=== PATIENT | male | born 1955 | race Caucasian/White ===

== ENCOUNTER 2020-12-26 09:43 | Outpatient (REF) | payer MEDICARE, MEDICAID, SELFPAY ==
[2020-12-26 12:10] LABS: Anion Gap 17 (12-20); Blood Urea Nitrogen 4 mg/dL (9-16); Calcium 8.3 mg/dL (8.4-10.2); Carbon Dioxide 29 mmol/L (22-29); Chloride 84 mmol/L (96-108); Estimated Glomerular Filt Rate > 60; Glucose Random 102 mg/dL (60-115); Sodium 127 mmol/L (135-145)
== END 2020-12-26 09:44 | disposition home or self-care (01) ==
LOC: HO.MANLDS 09:43
PROVIDERS: Visit Provider Internal Medicine
DX: E87.1 Hypo-osmolality and hyponatremia (principal)
CPT/HCPCS: 36415; 80048

== ENCOUNTER 2022-01-22 11:02 | Outpatient (REF) | payer OTHER, SELFPAY ==
[2022-01-22 13:24] LABS: MANUAL DIFF FLAG NO
[2022-01-22 13:33] LABS: Basophils Absolute Auto 0.1 X10*3/uL (0.0-0.2); Basophils Percent Auto 0.5 % (0-2); Eosinophils Absolute Auto 0.1 X10*3/uL (0.0-0.4); Eosinophils Percent Auto 0.8 % (0-4); Hematocrit 30.1 % (42.0-52.0); Hemoglobin 11.1 g/dl (14.0-18.0); Imm Gran Abs Auto 0.11 X10*3/uL (0.00-0.03); Imm Gran Pct Auto 1.2 % (0.0-0.4); Lymphocytes Absolute Auto 2.1 X10*3/uL (1.2-4.9); Mean Corpuscular HGB Conc 36.9 g/dl (31.0-36.0); Mean Corpuscular Hemoglobin 36.3 pg (27.0-33.0); Mean Corpuscular Volume 98.4 fL (80.0-98.0); Mean Platelet Volume 10.1 fL (9.4-12.4); Monocytes Absolute Auto 0.9 X10*3/uL (0.1-1.2); Monocytes Percent Auto 9.2 % (2-11); Neutrophils Percent Auto 65.3 % (45-73); Platelet Count 163 X10*3/uL (160-400); Red Blood Count 3.06 X10*6/uL (4.60-5.80); Red Cell Distribution Width 14.4 % (11.0-16.0); White Blood Count 9.3 X10*3/uL (4.8-10.8)
[2022-01-22 13:36] LABS: INTERNATIONAL NORM RATIO 1.3 (0.9-1.1); Prothrombin Time 15.2 SEC (10.0-13.1)
[2022-01-22 14:15] LABS: Alanine Aminotransferase 23 U/L (0-40); Albumin Level 2.3 g/dL (3.5-5.0); Alkaline Phosphatase 93 U/L (39-117); Anion Gap 13 (12-20); Aspartate Amino Transferase 51 U/L (5-37); Bilirubin Total 3.7 mg/dL (0.0-1.0); Blood Urea Nitrogen 9 mg/dL (9-16); Calcium 7.9 mg/dL (8.4-10.2); Carbon Dioxide 37 mmol/L (22-29); Chloride 79 mmol/L (96-108); Estimated Glomerular Filt Rate > 60; Glucose Random 120 mg/dL (60-115); Potassium 2.8 mmol/L (3.3-5.1); Sodium 126 mmol/L (135-145); Total Protein 6.8 g/dL (6.5-8.0)
[2022-01-22 14:19] LABS: Vitamin D 25-OH Total 8.7 ng/mL (>30)
[2022-01-22 14:41] LABS: Vitamin B12 985 pg/mL (200-900)
== END 2022-01-22 11:03 | disposition home or self-care (01) ==
LOC: HO.MANLDS 11:02
PROVIDERS: PCP Internal Medicine; Visit Provider Internal Medicine
DX: K70.9 Alcoholic liver disease, unspecified (principal)
CPT/HCPCS: 36415; 80053; 82306; 82607; 82746; 85025; 85610

== ENCOUNTER 2022-05-29 14:21 | Outpatient (REF) | payer OTHER, SELFPAY ==
[2022-05-29 18:38] LABS: Anion Gap 19 (12-20); Blood Urea Nitrogen 16 mg/dL (9-16); Calcium 9.6 mg/dL (8.4-10.2); Carbon Dioxide 21 mmol/L (22-29); Chloride 93 mmol/L (96-108); Estimated Glomerular Filt Rate > 60; Ferritin 1006 ng/mL (20-250); Glucose Random 93 mg/dL (60-115); Iron 98 mcg/dL (45-160); Percent Iron Saturation 39 % (15-50); Potassium 4.8 mmol/L (3.3-5.1); Sodium 128 mmol/L (135-145); Total Iron Binding Capacity 250 mcg/dL (228-428); Unsaturated Iron Binding 152 ug/dL
== END 2022-05-29 14:22 | disposition home or self-care (01) ==
LOC: HO.MANLDS 14:21
PROVIDERS: Visit Provider Internal Medicine
DX: D64.9 Anemia, unspecified (principal)
CPT/HCPCS: 36415; 80048; 82728; 83540

== ENCOUNTER 2022-07-19 15:32 | Outpatient (REF) | payer MEDICARE, SELFPAY ==
[2022-07-19 15:56] LABS: MANUAL DIFF FLAG NO
[2022-07-19 16:12] LABS: Basophils Percent Auto 0.3 % (0-2); Eosinophils Absolute Auto 0.2 X10*3/uL (0.0-0.4); Eosinophils Percent Auto 1.7 % (0-4); Hematocrit 34.1 % (42.0-52.0); Hemoglobin 11.7 g/dl (14.0-18.0); Imm Gran Abs Auto 0.13 X10*3/uL (0.00-0.03); Imm Gran Pct Auto 1.1 % (0.0-0.4); Lymphocytes Absolute Auto 1.5 X10*3/uL (1.2-4.9); Mean Corpuscular HGB Conc 34.3 g/dl (31.0-36.0); Mean Corpuscular Hemoglobin 29.8 pg (27.0-33.0); Mean Platelet Volume 8.7 fL (9.4-12.4); Monocytes Percent Auto 8.4 % (2-11); Neutrophils Absolute Auto 9.3 x10*3/uL (2.0-8.3); Neutrophils Percent Auto 76.5 % (45-73); Platelet Count 231 X10*3/uL (160-400); Red Blood Count 3.92 X10*6/uL (4.60-5.80); Red Cell Distribution Width 13.8 % (11.0-16.0); White Blood Count 12.1 X10*3/uL (4.8-10.8)
[2022-07-19 16:17] LABS: INTERNATIONAL NORM RATIO 1.1 (0.9-1.1); Prothrombin Time 12.6 SEC (10.0-13.1)
[2022-07-19 16:54] LABS: Alanine Aminotransferase 122 U/L (0-40); Albumin Level 4.1 g/dL (3.5-5.0); Alkaline Phosphatase 122 U/L (39-117); Anion Gap 15 (12-20); Aspartate Amino Transferase 62 U/L (5-37); Bilirubin Total 0.8 mg/dL (0.0-1.0); Blood Urea Nitrogen 35 mg/dL (9-16); Calcium 9.8 mg/dL (8.4-10.2); Carbon Dioxide 24 mmol/L (22-29); Chloride 96 mmol/L (96-108); Estimated Glomerular Filt Rate > 60; Glucose Random 108 mg/dL (60-115); Iron 44 mcg/dL (45-160); Percent Iron Saturation 17 % (15-50); Potassium 4.7 mmol/L (3.3-5.1); Sodium 130 mmol/L (135-145); Total Iron Binding Capacity 264 mcg/dL (228-428); Total Protein 7.5 g/dL (6.5-8.0); Unsaturated Iron Binding 220 ug/dL
[2022-07-19 17:09] LABS: Ferritin 995 ng/mL (20-250); Vitamin D 25-OH Total 34.8 ng/mL (>30)
[2022-07-19 17:26] LABS: Folate 7.1 ng/mL (> or = 4.0); Vitamin B12 352 pg/mL (200-900)
== END 2022-07-19 15:33 | disposition home or self-care (01) ==
LOC: HO.LAB 15:32
PROVIDERS: PCP Internal Medicine; Visit Provider Internal Medicine
DX: K70.9 Alcoholic liver disease, unspecified (principal); R77.8 Other specified abnormalities of plasma proteins
CPT/HCPCS: 36415; 80053; 82306; 82607; 82728; 82746; 83540; 85025; 85610

== ENCOUNTER 2022-07-30 15:06 | Outpatient (REF) | payer MEDICARE, SELFPAY ==
[2022-07-30 15:21] LABS: MANUAL DIFF FLAG NO
[2022-07-30 15:23] LABS: Basophils Absolute Auto 0.1 X10*3/uL (0.0-0.2); Basophils Percent Auto 0.5 % (0-2); Eosinophils Absolute Auto 0.3 X10*3/uL (0.0-0.4); Eosinophils Percent Auto 2.3 % (0-4); Hematocrit 34.1 % (42.0-52.0); Hemoglobin 11.8 g/dl (14.0-18.0); Imm Gran Abs Auto 0.13 X10*3/uL (0.00-0.03); Lymphocytes Absolute Auto 2.6 X10*3/uL (1.2-4.9); Lymphocytes Percent Auto 19.8 % (20-40); Mean Corpuscular HGB Conc 34.6 g/dl (31.0-36.0); Mean Corpuscular Hemoglobin 30.4 pg (27.0-33.0); Mean Corpuscular Volume 87.9 fL (80.0-98.0); Mean Platelet Volume 8.6 fL (9.4-12.4); Monocytes Absolute Auto 0.9 X10*3/uL (0.1-1.2); Monocytes Percent Auto 6.9 % (2-11); Neutrophils Percent Auto 69.5 % (45-73); Platelet Count 267 X10*3/uL (160-400); Red Blood Count 3.88 X10*6/uL (4.60-5.80); Red Cell Distribution Width 13.6 % (11.0-16.0)
[2022-07-30 15:28] LABS: Prothrombin Time 11.5 SEC (10.0-13.1)
[2022-07-30 15:32] LABS: Ammonia 31 umol/L (13-55)
[2022-07-30 15:52] LABS: Alanine Aminotransferase 28 U/L (0-40); Albumin Level 4.1 g/dL (3.5-5.0); Alkaline Phosphatase 109 U/L (39-117); Anion Gap 18 (12-20); Aspartate Amino Transferase 26 U/L (5-37); Bilirubin Total 0.5 mg/dL (0.0-1.0); Blood Urea Nitrogen 32 mg/dL (9-16); Calcium 9.8 mg/dL (8.4-10.2); Carbon Dioxide 20 mmol/L (22-29); Chloride 100 mmol/L (96-108); Estimated Glomerular Filt Rate > 60; Gamma Glutamyl Transpeptidase 143 U/L (11-51); Glucose Random 105 mg/dL (60-115); Potassium 5.2 mmol/L (3.3-5.1); Sodium 133 mmol/L (135-145); Total Protein 7.8 g/dL (6.5-8.0)
[2022-07-30 16:07] LABS: Vitamin D 25-OH Total 36.8 ng/mL (>30)
[2022-07-30 16:20] LABS: Folate 7.9 ng/mL (> or = 4.0); Vitamin B12 476 pg/mL (200-900)
== END 2022-07-30 15:07 | disposition home or self-care (01) ==
LOC: HO.LAB 15:06
PROVIDERS: PCP Internal Medicine; Visit Provider Physician Assistant
DX: K70.9 Alcoholic liver disease, unspecified (principal)
CPT/HCPCS: 36415; 80053; 82140; 82306; 82607; 82746; 82977; 85025; 85610

== ENCOUNTER 2023-09-03 13:52 | Outpatient (REF) | payer MEDICARE, SELFPAY ==
[2023-09-03 17:26] LABS: MANUAL DIFF FLAG NO
[2023-09-03 17:45] LABS: Alanine Aminotransferase 16 U/L (0-40); Albumin Level 4.2 g/dL (3.5-5.0); Alkaline Phosphatase 115 U/L (39-117); Anion Gap 15 (12-20); Aspartate Amino Transferase 22 U/L (5-37); Bilirubin Total 0.7 mg/dL (0.0-1.0); Blood Urea Nitrogen 18 mg/dL (9-16); Calcium 9.3 mg/dL (8.4-10.2); Carbon Dioxide 25 mmol/L (22-29); Chloride 93 mmol/L (96-108); Estimated Glomerular Filt Rate > 60; Glucose Random 103 mg/dL (60-115); Potassium 4.2 mmol/L (3.3-5.1); Sodium 129 mmol/L (135-145); Total Protein 7.6 g/dL (6.5-8.0)
[2023-09-03 17:48] LABS: Basophils Percent Auto 0.3 % (0-2); Eosinophils Absolute Auto 0.1 X10*3/uL (0.0-0.4); Eosinophils Percent Auto 0.9 % (0-4); Hematocrit 35.5 % (42.0-52.0); Hemoglobin 12.5 g/dl (14.0-18.0); Imm Gran Abs Auto 0.07 X10*3/uL (0.00-0.03); Imm Gran Pct Auto 1.1 % (0.0-0.4); Lymphocytes Absolute Auto 1.7 X10*3/uL (1.2-4.9); Lymphocytes Percent Auto 25.3 % (20-40); Mean Corpuscular HGB Conc 35.2 g/dl (31.0-36.0); Mean Corpuscular Volume 85.3 fL (80.0-98.0); Mean Platelet Volume 9.5 fL (9.4-12.4); Monocytes Absolute Auto 0.7 X10*3/uL (0.1-1.2); Monocytes Percent Auto 11.3 % (2-11); Neutrophils Percent Auto 61.1 % (45-73); Platelet Count 205 X10*3/uL (160-400); Red Blood Count 4.16 X10*6/uL (4.60-5.80); Red Cell Distribution Width 13.2 % (11.0-16.0); White Blood Count 6.6 X10*3/uL (4.8-10.8)
[2023-09-08 11:08] LABS: Testosterone, Total 314 ng/dL (250-1100)
== END 2023-09-03 13:53 | disposition home or self-care (01) ==
LOC: HO.MANLDS 13:52
PROVIDERS: Visit Provider Internal Medicine
DX: E87.1 Hypo-osmolality and hyponatremia (principal); R53.83 Other fatigue
CPT/HCPCS: 36415; 80053; 84403; 85025

== ENCOUNTER 2023-10-15 11:39 | Outpatient (REF) | payer MEDICARE, SELFPAY ==
[2023-10-15 12:54] LABS: MANUAL DIFF FLAG NO
[2023-10-15 13:03] LABS: Basophils Percent Auto 0.5 % (0-2); Eosinophils Absolute Auto 0.1 X10*3/uL (0.0-0.4); Eosinophils Percent Auto 1.6 % (0-4); Hematocrit 38.6 % (42.0-52.0); Hemoglobin 13.7 g/dl (14.0-18.0); Imm Gran Abs Auto 0.04 X10*3/uL (0.00-0.03); Imm Gran Pct Auto 0.5 % (0.0-0.4); Lymphocytes Absolute Auto 1.5 X10*3/uL (1.2-4.9); Lymphocytes Percent Auto 18.5 % (20-40); Mean Corpuscular HGB Conc 35.5 g/dl (31.0-36.0); Mean Corpuscular Hemoglobin 30.6 pg (27.0-33.0); Mean Corpuscular Volume 86.4 fL (80.0-98.0); Mean Platelet Volume 9.1 fL (9.4-12.4); Monocytes Absolute Auto 0.7 X10*3/uL (0.1-1.2); Monocytes Percent Auto 8.2 % (2-11); Neutrophils Absolute Auto 5.6 x10*3/uL (2.0-8.3); Neutrophils Percent Auto 70.7 % (45-73); Platelet Count 222 X10*3/uL (160-400); Red Blood Count 4.47 X10*6/uL (4.60-5.80); White Blood Count 7.9 X10*3/uL (4.8-10.8)
[2023-10-15 13:05] LABS: INTERNATIONAL NORM RATIO 0.9 (0.9-1.1); Prothrombin Time 11.5 SEC (11.1-13.3)
[2023-10-15 13:43] LABS: Alanine Aminotransferase 18 U/L (0-40); Albumin Level 4.2 g/dL (3.5-5.0); Alkaline Phosphatase 102 U/L (39-117); Anion Gap 10 (12-20); Aspartate Amino Transferase 18 U/L (5-37); Bilirubin Total 0.6 mg/dL (0.0-1.0); Blood Urea Nitrogen 12 mg/dL (9-16); C Reactive Protein 0.26 mg/dL (< or = 0.50); Calcium 9.6 mg/dL (8.4-10.2); Carbon Dioxide 29 mmol/L (22-29); Chloride 95 mmol/L (96-108); Estimated Glomerular Filt Rate > 60; Ferritin 384 ng/mL (20-250); Glucose Random 104 mg/dL (60-115); Iron 82 mcg/dL (45-160); Lactate Dehydrogenase 180 U/L (118-273); Percent Iron Saturation 32 % (15-50); Potassium 4.4 mmol/L (3.3-5.1); Sodium 130 mmol/L (135-145); Total Iron Binding Capacity 259 mcg/dL (228-428); Total Protein 7.5 g/dL (6.5-8.0); Unsaturated Iron Binding 177 ug/dL
[2023-10-15 13:45] LABS: Erythrocyte Sedimentation Rate 13 MM/HR (0-15)
[2023-10-19 12:34] LABS: NT-proBNP 156 pg/mL (<125)
== END 2023-10-15 11:40 | disposition home or self-care (01) ==
LOC: HO.MANLDS 11:39
PROVIDERS: Visit Provider Physician Assistant
DX: R18.8 Other ascites (principal)
CPT/HCPCS: 36415; 80053; 82728; 83540; 83615; 83880; 85025; 85610; 85652; 86140

== ENCOUNTER 2024-05-13 12:33 | Outpatient (AMB) | payer MEDICARE, SELFPAY ==
--- NOTE | 2024-05-13 12:40 | A.OFFVIS_ITS ---
Intake Visit Reasons: erectile dysfunction Intake Note: Patient is present for ERECTILE DYSFUCTION Urology Medication:NONE Antibiotic Allergy:NONE Blood Thinner:NONE Critical Care Cns Required: No Allergies lisinopril Allergy (Mild, Verified 05/13/24 14:16) Unknown Medication List - Last Reconciled 05/13/24 by Nikki Garcia MD albuterol sulfate 90 mcg/actuation 90 mcg inhalation Q4H PRN atenolol-chlorthalidone 50-25 mg 1 tab PO DAILY cholecalciferol (vitamin D3) 50 mcg PO DAILY furosemide 40 mg PO DAILY lactulose mL PO midodrine 5 mg PO TID pantoprazole 40 mg PO DAILY rifaximin (Xifaxan) 550 mg PO BID sildenafil mg PO spironolactone 50 mg PO BID tadalafil (Cialis) 20 mg orally use no more than one time a week; [id number] [facility] [id number] Member [id number] tadalafil (Cialis) 5 mg PO DAILY tiotropium-olodaterol 2.5-2.5 mcg/actuation (Stiolto Respimat) 2 puffs inhalation DAILY umeclidinium-vilanterol 62.5-25 mcg/actuation (Anoro Ellipta) 1 inh inhalation DAILY HPI Comments Details: Ferny is a 68 year old male who is here for evaluation for Erectile dysfunction. He has had symptoms for over 2 years. States his is . He has been on Viagra 100 mg prn without improvement. Comorbidity - h/o Nicotine use. Denies family history of prostate cancer. IIEF-5 Questionnaire score 5. Discussed use of daily Cialis 5 mg and after one month of use may add on demand Cialis 20 mg no more than one time a week. Will check PSA. Pt denies urinary symptoms. [facility] Medical History (Updated 05/18/24 @ 12:12 by Nikki Garcia MD) Osteoarthritis of ankle Osteoarthritis of knee Chronic obstructive lung disease History of tobacco use Hyponatremia Alcoholic fatty liver Edema of lower extremity Obesity High serum ferritin Elevated liver enzymes Ascites Abdominal pain Atypical chest pain Fatigue Cholelithiasis without obstruction Alcoholic liver damage Bilateral inguinal hernia Hypotensive episode Atrial fibrillation Erectile dysfunction Anemia Drug-induced hypokalemia Vitamin D deficiency Lipoma of upper arm Surgical History (Updated 05/13/24 @ 14:44 by RALPH Juarez) S/P reconstruction procedure Review of Systems Const All systems reviewed & are unremarkable except as noted in HPI and below Reports no additional complaints Eyes Reports no additional complaints ENT Reports no additional complaints Card Reports no additional complaints Resp Reports no additional complaints GI Reports no additional complaints Reports as per HPI Musc Reports no additional complaints Skin/Breast Reports system reviewed and no additional complaints, except as documented Neuro Reports no additional complaints Psych Reports no additional complaints Endo Reports no additional complaints Josesito/Lymph Reports no additional complaints Aller/Immun Reports no additional complaints Physical Exam Const General: healthy appearing, no acute distress and well developed Orientation/consciousness: patient oriented x3 HEENT Head: Yes normocephalic and Yes atraumatic Eyes Conjunctivae: conjunctivae normal Neck Neck: Yes normal visual inspection Chest Chest palpation & inspection: normal inspection of the chest Resp Effort & Inspection: normal respiratory effort Cardio Rate: regular rate GI Inspection: Yes normal to inspection Palpation (GI): Soft to palpation Skin General skin exam: no rashes or lesions noted Neuro General: patient oriented x3 Extrem General: No pedal edema Psych Appearance: grossly normal Affect: normal affect Results AMB Urinalysis, Automated UA Leukoctes 0 Maya/uL Last Edit by RALPH Juarez on 05/13/24 13:14 UA Nitrite Negative Last Edit by RALPH Juarez on 05/13/24 13:14 UA Urobilinogen 0.2 mg/dL Last Edit by RALPH Juarez on 05/13/24 13:1 4 UA Protein 15 mg/dL Last Edit by RALPH Juarez on 05/13/24 13:14 UA pH 7.0 Last Edit by RALPH Juarez on 05/13/24 13:14 UA Blood 0 Nic/uL Last Edit by RALPH Juarez on 05/13/24 13:14 UA Specific Fate 1.010 Last Edit by RALPH Juarez on 05/13/24 13: 14 UA Ketone Negative Last Edit by RALPH Juarez on 05/13/24 13:14 UA Bilirubin 0 mg/dL Last Edit by RALPH Juarez on 05/13/24 13:14 UA Glucose 0 mg/dL Last Edit by RALPH Juarez on 05/13/24 13:14 Results Reviewed Results Reviewed: Laboratory Last Values Urine pH (Auto) 7.0 05/13/24 13:13 Specific Fate (Auto) 1.010 05/13/24 13:13 Urine Protein (Auto) 15 mg/dL 05/13/24 13:13 Glucose (UA)(Auto) 0 mg/dL 05/13/24 13:13 Urine Ketones (Auto) Negative 05/13/24 13:13 Urine Blood (Auto) 0 Nic/uL 05/13/24 13:13 Urine Nitrite (Auto) Negative 05/13/24 13:13 Urine Bilirubin (Auto) 0 mg/dL 05/13/24 13:13 Urine Urobilinogen (Auto) 0.2 mg/dL 05/13/24 13:13 Leukocyte Esterase (Auto) 0 Maya/uL 05/13/24 13:13 Assessment & Plan Assessment & Plan (1) BPH (benign prostatic hyperplasia): Code(s): N40.0 - Benign prostatic hyperplasia without lower urinary tract symptoms Category: Medical (2) Erectile dysfunction: Code(s): N52.9 - Male erectile dysfunction, unspecified Category: Medical (3) Screening PSA (prostate specific antigen): Code(s): Z12.5 - Encounter for screening for malignant neoplasm of prostate Category: Medical Plan Discuss use of daily Cialis 5 mg and after one month of use may add on demand Cialis 20 mg no more than one time a week. Will check PSA. Pt denies urinary symptoms. Orders: Orders AMB Urinalysis Automated 05/13/24 Z13.9 - Encounter for screening, unspecified Medications: New tadalafil (Cialis) 20 mg orally use no more than one time a week; [id number] [facility] [id number] Member [id number] 15 tabs 0RF tadalafil (Cialis) [id number] [facility] [id number] 5 mg PO DAILY 30 tabs 3RF Patient Instructions: The patient had an opportunity to ask questions regarding treatment plan. The patient expressed understanding and agreement with the above treatment plan. The patient is aware they should contact our office by phone for worsening of their current condition or the appearance of new symptoms. Compliance is encouraged with any medications and followup testing that is ordered. It is a privilege to be allowed the opportunity to participate in the urologic care of your patient. If you have any questions or concerns regarding treatment for the above conditions please do not hesitate to contact me. The office telephone contact is [phone]. This note is constructed in part using voice recognition software. While every effort has been made to ensure accuracy information technology security manager errors may have been included. Yours sincerely, Nikki Garcia MD Coding Level of Care Code New Pt Level 4 (91119) Diagnoses BPH (benign prostatic hyperplasia) N40.0 Erectile dysfunction N52.9 Screening PSA (prostate specific antigen) Z12.5
== END 2024-05-13 14:14 | disposition home or self-care (01) ==
LOC: HO.HUSH 12:33
PROVIDERS: PCP Internal Medicine; Visit Provider Urology
DX: N40.0 Benign prostatic hyperplasia without lower urinary tract symptoms (principal); N52.9 Male erectile dysfunction, unspecified; Z12.5 Encounter for screening for malignant neoplasm of prostate
CPT/HCPCS: 99204

== ENCOUNTER → 2024-05-13 12:33 | Outpatient (BNVA) | payer MEDICARE, SELFPAY | PROVIDERS: PCP Internal Medicine; Visit Provider Urology | DX: N52.9 Male erectile dysfunction, unspecified (principal); N40.0 Benign prostatic hyperplasia without lower urinary tract symptoms; Z12.5 Encounter for screening for malignant neoplasm of prostate | CPT/HCPCS: 81003; 99202 ==